=== PATIENT | female | born 1960 | race Caucasian/White ===

== ENCOUNTER 2023-09-24 15:55 | Emergency (ER) | payer BC | END 2023-09-24 18:20 | disposition home or self-care (01) | LOC: FB.ED 15:55 | DX: S66.911A Strain of unspecified muscle, fascia and tendon at wrist and hand level, right hand, initial encounter (principal); S66.912A Strain of unspecified muscle, fascia and tendon at wrist and hand level, left hand, initial encounter; S05.11XA Contusion of eyeball and orbital tissues, right eye, initial encounter; Z88.8 Allergy status to other drugs, medicaments and biological substances; W01.198A Fall on same level from slipping, tripping and stumbling with subsequent striking against other object, initial encounter | CPT/HCPCS: 73110-50; 99283 ==